=== PATIENT | female | born 1995 | race Caucasian/White ===

== ENCOUNTER 2017-02-24 13:54 | Emergency (ER) | payer SELFPAY ==
[2017-02-24 14:33] LABS: Urine Appearance Cloudy; Urine Bilirubin Negative (NEGATIVE); Urine Blood Negative /ul (NEGATIVE); Urine Color Yellow; Urine Ketone 5 mg/dL (NEGATIVE); Urine Protein 15 mg/dL (NEGATIVE); Urine pH 5.5 pH (5.0-7.0)
[2017-02-24 14:34] LABS: Urine Amorphous Sediment Moderate - 2+ (NONE-FEW); Urine Bacteria 1+; Urine Nitrite Negative (NEGATIVE); Urine RBC None Seen /hpf (0-5); Urine Urobilinogen Normal (NORMAL); Urine WBC 0-5 /hpf (0-5)
[2017-02-24 14:58] VITALS: BP 129/73
--- NOTE | 2017-02-24 15:00 | ERNOTE ---
Time Seen by Provider: 02/24/17 14:43 Stated Complaint: not feeling well Presenting Symptoms:: cough Immunizations: IMMUNIZATION HX Immunizations Up to Date Yes History of Influenza Vaccine Yes Hx Pneumococcal Vaccination No Allergies/Adverse Reactions: Allergies No Known Allergies Allergy (Verified 02/24/17 14:07) Home Medications: HOME MEDICATIONS NK [No Home Medication] 02/24/17 [Last Taken Unknown] - History of Present Ilness Narrative: Patient has not felt well in a week or two. More recently she started to have dysuria and frequency, denies vaginal discharge. She also has a stuffy nose. She is currently in between jobs, not doing anything in particular, no sick exposure Frequency/Possible Cause: Reports: occasional episodes Associated Symptoms: Reports: nasal congestion, nasal drainage. Denies: chest pain/soreness, cough, shortness of breath, lightheadedness, earache, headache, fever/chills Prior Treatment: Denies: recently seen, currently on antibiotics Review of Systems - Review of Systems Constitutional: Absent: recent illness ENT: Present: nose congestion. Absent: ear pain Respiratory: Absent: shortness of breath, cough Cardiology: Absent: chest pain Gastrointestinal/Abdominal: Present: nausea, other - decrased appetite. Absent : vomiting, diarrhea, abdominal pain Genitourinary: Present: See HPI Musculoskeletal: Present: back pain - slight low back Neurological: Absent: headache, weakness, numbness - Patient's Past Medical History Patient History - Medical: GERD, UTI'S Patient History - Cardiac/Respiratory: Asthma Patient History - Cancer: No Hx of Cancer Patient History - Surgical Procedures: Ear Tubes Patient History - Other: None - Social History Abuse History: No History of abuse Psych History: No pertinent hx Smoking Status: Never smoker - Immunizations Immunizations Up to Date: Yes Hx Pneumococcal Vaccination: No History of Influenza Vaccine: Yes Physical Exam - Physical Exam General Appearance: Present: wd/wn, alert, no apparent distress, obese Ears, Nose, Throat: Present: normal except -, nasal congestion, normal pharynx Respiratory: Present: no respiratory distress, normal breath sounds, no accessory muscle use, lungs clear Cardiovascular/Chest: Present: regular rate, rhythm, no murmur Gastrointestinal/Abdominal: Present: normal bowel sounds, nondistended, soft, tenderness - mild lower abdominal tenderness Back Exam: Present: normal inspection, normal range of motion, no CVA tenderness , no vertebral tenderness Extremity Exam: Present: no edema Neurological Exam: Present: alert, oriented, normal mood/affect Skin Exam: Present: normal color, warm/dry ED Progress - Results and Orders Patient's Lab Results:: I have reviewed the patient's lab results. - Vital Signs Patient's Vital Signs:: I have reviewed the patient's vital signs. Vital Signs: Vital Signs 02/24/17 14:04 Temperature 36.8 C Pulse Rate 103 H Respiratory 14 Rate Blood Pressure 135/80 O2 Sat by Pulse 99 Oximetry - Progress/Reassessment Chief Complaint: Genitourinary Problem Departure Clinical Impression: URI (upper respiratory infection) Qualifiers: URI type: unspecified viral URI Qualified Code(s): J06.9 - Acute upper respiratory infection, unspecified - Departure Disposition: Home self-care Condition: Good Instructions: Upper Respiratory Infection, Adult, [id number] Additional Instructions: you will be notified if the urine grows any bacteria Referrals: Belia Billingsley FNP [Primary Care Provider] -
== END 2017-02-24 14:58 | disposition home or self-care (01) ==
LOC: ER 13:54
DX: J06.9 Acute upper respiratory infection, unspecified (principal); B97.89 Other viral agents as the cause of diseases classified elsewhere; Z87.440 Personal history of urinary (tract) infections